=== PATIENT | male | born 1940 | race African-American/Black ===

== ENCOUNTER 2018-05-12 14:41 | Emergency (ER) | payer MEDICARE, MEDICAID ==
[~2018-05-12] VITALS: Ht 182.9 cm; Wt 85.0 kg
[2018-05-12 19:21] VITALS: BP 170/93
== END 2018-05-12 19:22 | disposition home or self-care (01) ==
LOC: ER 15:01
DX: R45.1 Restlessness and agitation (principal); F31.9 Bipolar disorder, unspecified; J44.9 Chronic obstructive pulmonary disease, unspecified; I10 Essential (primary) hypertension; F20.9 Schizophrenia, unspecified; F03.90 Unspecified dementia, unspecified severity, without behavioral disturbance, psychotic disturbance, mood disturbance, and anxiety
CPT/HCPCS: 99283; 99284

== ENCOUNTER 2018-05-12 20:07 | Emergency (ER) | payer MEDICARE, MEDICAID ==
[~2018-05-12] VITALS: Ht 175.3 cm; Wt 82.0 kg
[2018-05-12 20:22] VITALS: BP 154/85
== END 2018-05-12 21:25 | disposition home or self-care (01) ==
LOC: ER 20:07
DX: R45.1 Restlessness and agitation (principal); F31.9 Bipolar disorder, unspecified; J44.9 Chronic obstructive pulmonary disease, unspecified; I10 Essential (primary) hypertension
CPT/HCPCS: 99283

== ENCOUNTER 2018-05-12 22:40 | Emergency (ER) | payer MEDICARE, MEDICAID ==
[~2018-05-12] VITALS: Ht 175.3 cm; Wt 82.0 kg
[2018-05-13 00:30] VITALS: BP 138/86
== END 2018-05-13 00:50 | disposition home or self-care (01) ==
LOC: ER 05-13 00:32
DX: Z13.89 Encounter for screening for other disorder (principal); F91.8 Other conduct disorders; F31.9 Bipolar disorder, unspecified; F03.90 Unspecified dementia, unspecified severity, without behavioral disturbance, psychotic disturbance, mood disturbance, and anxiety; F20.9 Schizophrenia, unspecified; I10 Essential (primary) hypertension; J44.9 Chronic obstructive pulmonary disease, unspecified
CPT/HCPCS: 99283

== ENCOUNTER 2018-12-25 15:16 | Emergency (ER) | payer MEDICARE, MEDICAID ==
[~2018-12-25] VITALS: Ht 185.4 cm; Wt 70.0 kg
[2018-12-25 18:35] VITALS: BP 148/90
== END 2018-12-25 18:36 | disposition home or self-care (01) ==
LOC: ER 15:16
DX: I10 Essential (primary) hypertension (principal)
CPT/HCPCS: 82962; 99283